=== PATIENT | female | born 2000 | race African-American/Black ===

== ENCOUNTER 2020-12-11 21:04 | Emergency (ER) | payer MEDICAID ==
[~2020-12-11] VITALS: Ht 180.3 cm; Wt 84.4 kg
[2020-12-11 21:15] VITALS: BP 101/83
[2020-12-11] MEDS ORDERED: diphenhdrAMINE HCL 25 MG CAP PO ONE (22:15)
[2020-12-11] MEDS ORDERED: methylPREDNISolone SOD SUCC 125 MG/2 ML VL IM ONE (22:15)
== END 2020-12-11 22:55 | disposition home or self-care (01) ==
LOC: ER 21:04
DX: R22.43 Localized swelling, mass and lump, lower limb, bilateral (principal); L50.9 Urticaria, unspecified
CPT/HCPCS: 81025; 96372; 99283; J2930